=== PATIENT | female | born 1985 | race American Indian/Alaskan Native ===

== ENCOUNTER 2019-01-20 00:17 | Emergency (ER) | payer SELFPAY ==
[2019-01-20 00:31] VITALS: BP 157/94; PULSE 112
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
[2019-01-20] MEDS ORDERED: Acetaminophen/HYDROcodone 325-5 MG Tab PO ONE (00:58)
--- NOTE | 2019-01-20 07:45 | CT ---
CT facial bones Technique: Multiple axial sections through the facial bones were obtained. Intravenous contrast was not utilized. Comparison: No prior facial bone study. Findings: Motion artifact noted on some of the cuts. Periorbital soft tissue swelling is seen around the right side. Soft tissue swelling continues along the right zygomatic area. Paranasal sinuses are clear. No air-fluid levels or mucosal thickening is seen. Right and left globes are symmetric in size. No facial bone fracture is identified. Impression: 1. Soft tissue swelling as noted above. 2. No facial bone fracture is appreciated. Diagnostic code #2 I agree with preliminary report from [facility], finalized on 01/20/19, 2:44 AM Central Time
--- NOTE | 2019-01-20 07:45 | CT ---
Head CT Technique: Multiple axial sections through the brain were obtained. Intravenous contrast was not utilized. Comparison: No prior intracranial imaging. Findings: Soft tissue hematoma is seen within the frontal scalp mostly on the right side. Periorbital soft tissue swelling is seen on the right side which is incompletely included on the study. Ventricles along with basal cisterns and sulci over the convexities appear within normal limits. No abnormal parenchymal densities are seen. No evidence of intracranial hemorrhage. No midline shift or mass effect is seen. Mild motion artifact is noted on the base cuts. Visualized mastoid sinuses and paranasal sinuses show nothing acute. No acute calvarial abnormality is appreciated. Impression: 1. Soft tissue hematoma within the right frontal scalp as well as right periorbital soft tissue swelling. 2. No acute intracranial abnormality is seen. 3. No acute skull fracture is seen. Diagnostic code #3 I agree with preliminary report from [facility], finalized on 01/20/19, 2:37 AM Central Time
== END 2019-01-20 01:25 | disposition left against medical advice (07) ==
LOC: JD.ED 00:17
DX: S00.03XA Contusion of scalp, initial encounter (principal); S00.83XA Contusion of other part of head, initial encounter; S20.01XA Contusion of right breast, initial encounter; S40.022A Contusion of left upper arm, initial encounter; S00.12XA Contusion of left eyelid and periocular area, initial encounter; Z79.899 Other long term (current) drug therapy; Z79.84 Long term (current) use of oral hypoglycemic drugs; Y04.2XXA Assault by strike against or bumped into by another person, initial encounter
CPT/HCPCS: 70450; 70486; 99284; A9270; 99283